=== PATIENT | male | born 1935 | race Hispanic/Latino ===

== ENCOUNTER → 2024-05-06 | Outpatient (CLI) | payer OTHER, MEDICARE | END | disposition home or self-care (01) | LOC: RAH 12:31 | PROVIDERS: ATTEND Internal Medicine | DX: I70.203 Unspecified atherosclerosis of native arteries of extremities, bilateral legs (principal); M79.661 Pain in right lower leg; M79.662 Pain in left lower leg | CPT/HCPCS: 93925 ==